=== PATIENT | female | born 1995 | race Caucasian/White ===

== ENCOUNTER 2021-01-17 07:15 | Emergency (ER) | payer SELFPAY ==
[~2021-01-17] VITALS: Ht 162.6 cm; Wt 88.4 kg
[~2021-01-17 07:15] MED LIST: PEPCID20 MG PO
[2021-01-17] MEDS ORDERED: PENICILLIN V P500 MG PO (07:47)
== END 2021-01-17 07:55 | disposition home or self-care (01) ==
LOC: ED 07:15
DX: K08.89 Other specified disorders of teeth and supporting structures (principal); K21.9 Gastro-esophageal reflux disease without esophagitis; F17.200 Nicotine dependence, unspecified, uncomplicated
CPT/HCPCS: 99282; A9270

== ENCOUNTER 2021-04-28 16:40 | Emergency (ER) | payer SELFPAY ==
[~2021-04-28] VITALS: Ht 162.6 cm; Wt 88.0 kg
[~2021-04-28 16:40] MED LIST changes: +PENICILLIN V P500 MG PO
--- OUTSIDE RECORDS SUMMARY | 2021-04-28 16:48 | XMS ---
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 Care Guidelines exist for the following facilities: [facility] ( 09/11/2017 ) Care History Medical/Surgical 05/18/2015 [facility] h/o asthma, pharyngitis, abd pain, wondering if she's . EReynaldo. VISIT COUNT (12 MO.) 3 [facility] TOTAL 3 NOTE: Visits indicate total known visits. ED/UCC VISIT TRACKING (12 MO.) 04/28/2021 16:41 [facility] TYPE: Emergency COMPLAINT: - ABSCESS 04/27/2021 15:22 [facility] TYPE: Emergency COMPLAINT: - POSS ABSCESS 01/17/2021 07:16 [facility] TYPE: Emergency COMPLAINT: - LT TOOTH/JAW PAIN DIAGNOSES: - Gastro-esophageal reflux disease without esophagitis - Other specified disorders of teeth and supporting structures - Nicotine dependence, unspecified, uncomplicated INPATIENT VISIT TRACKING (12 MO.) No inpatient visits to display in this time frame [id number]
[2021-04-28] MEDS ORDERED: BACTRIM DS TAB1 EACH PO (17:32)
== END 2021-04-28 17:51 | disposition home or self-care (01) ==
LOC: ED 16:40
DX: N61.0 Mastitis without abscess (principal); F17.200 Nicotine dependence, unspecified, uncomplicated
CPT/HCPCS: 99283

== ENCOUNTER 2021-06-16 05:15 | Emergency (ER) | payer SELFPAY ==
[~2021-06-16] VITALS: Ht 162.6 cm; Wt 90.7 kg
[~2021-06-16 05:15] MED LIST changes: +BACTRIM DS TAB1 EACH PO
[2021-06-16] MEDS ORDERED: ZOFRAN4 MG PO (05:52)
== END 2021-06-16 06:09 | disposition home or self-care (01) ==
LOC: ED 05:15
DX: K52.9 Noninfective gastroenteritis and colitis, unspecified (principal); J06.9 Acute upper respiratory infection, unspecified; Z20.822 Contact with and (suspected) exposure to COVID-19; K21.9 Gastro-esophageal reflux disease without esophagitis; F17.200 Nicotine dependence, unspecified, uncomplicated
CPT/HCPCS: 99284; A9270; C9803; U0003

== ENCOUNTER 2021-07-28 19:01 | Emergency (ER) | payer BC ==
[~2021-07-28] VITALS: Ht 162.6 cm; Wt 92.1 kg
[~2021-07-28 19:01] MED LIST changes: +ZOFRAN4 MG PO
--- OUTSIDE RECORDS SUMMARY | 2021-07-28 19:08 | XMS ---
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 Care Guidelines exist for the following facilities: [facility] ( 09/11/2017 ) Care History Medical/Surgical 05/18/2015 [facility] h/o asthma, pharyngitis, abd pain, wondering if she's . E.D. VISIT COUNT (12 MO.) 5 [facility] TOTAL 5 NOTE: Visits indicate total known visits. ED/UCC VISIT TRACKING (12 MO.) 07/28/2021 19:01 [facility] TYPE: Emergency COMPLAINT: - BACK PAIN 06/16/2021 05:16 [facility] TYPE: Emergency COMPLAINT: - FLU SYMPTOMS DIAGNOSES: - Diarrhea, unspecified - Acute upper respiratory infection, unspecified - Gastro-esophageal reflux disease without esophagitis - Noninfective gastroenteritis and colitis, unspecified - Nicotine dependence, unspecified, uncomplicated 04/28/2021 16:[address] [facility] TYPE: Emergency COMPLAINT: - ABSCESS DIAGNOSES: - Gastro-esophageal reflux disease without esophagitis - Nicotine dependence, unspecified, uncomplicated - Mastodynia - Mastitis without abscess 04/27/2021 15:22 [facility] TYPE: Emergency COMPLAINT: - POSS [facility]SC[facility] COMPLAINT: - LT TOOTH/JAW PAIN DIAGNOSES: - Gastro-esophageal reflux disease without esophagitis - Other specified disorders of teeth and supporting structures - Nicotine dependence, unspecified, uncomplicated INPATIENT VISIT TRACKING (12 MO.) No inpatient visits to display in this time frame [email or web address]
[2021-07-28] MEDS ORDERED: SULFAMETHOXAZO1 EAC1 (20:10)
[2021-07-28] MEDS ORDERED: MOBIC15 MG PO (21:18)
[2021-07-28] MEDS ORDERED: CYCLOBENZAPRINE10 MG PO (21:18)
== END 2021-07-28 21:40 | disposition home or self-care (01) ==
LOC: ED 19:01
DX: S29.012A Strain of muscle and tendon of back wall of thorax, initial encounter (principal); K21.9 Gastro-esophageal reflux disease without esophagitis; F17.200 Nicotine dependence, unspecified, uncomplicated; X50.1XXA Overexertion from prolonged static or awkward postures, initial encounter
CPT/HCPCS: 72070; 81001; 96372; 99283-25; J1885; J3360

== ENCOUNTER 2021-09-15 04:59 | Emergency (ER) | payer OTHER ==
[~2021-09-15] VITALS: Ht 162.6 cm; Wt 98.0 kg
[~2021-09-15 04:59] MED LIST changes: +CYCLOBENZAPRINE10 MG PO; +MOBIC15 MG PO; +SULFAMETHOXAZO1 EAC1
[2021-09-15] MEDS ORDERED: NAPROSYN500 MG PO (05:39)
== END 2021-09-15 06:00 | disposition home or self-care (01) ==
LOC: ED 04:59
DX: S60.221A Contusion of right hand, initial encounter (principal); K21.9 Gastro-esophageal reflux disease without esophagitis; F17.200 Nicotine dependence, unspecified, uncomplicated; W22.09XA Striking against other stationary object, initial encounter
CPT/HCPCS: 73130; 99283-25

== ENCOUNTER 2022-01-08 09:53 | Emergency (ER) | payer OTHER ==
[~2022-01-08] VITALS: Ht 162.6 cm; Wt 98.0 kg
[~2022-01-08 09:53] MED LIST changes: +NAPROSYN500 MG PO
[2022-01-08] MEDS ORDERED: OMEPRAZOLE20 MG PO (13:22)
[2022-01-08] MEDS ORDERED: ONDANSETRON ODT8 MG PO (13:22)
== END 2022-01-08 13:33 | disposition home or self-care (01) ==
LOC: ED 09:53
DX: K29.00 Acute gastritis without bleeding (principal); K21.9 Gastro-esophageal reflux disease without esophagitis; F41.9 Anxiety disorder, unspecified; F32.9 Major depressive disorder, single episode, unspecified; F17.200 Nicotine dependence, unspecified, uncomplicated; Z79.899 Other long term (current) drug therapy
CPT/HCPCS: 36415; 80053; 83690; 84703; 85025; A9270